=== PATIENT | male | born 1995 | race Caucasian/White ===

== ENCOUNTER 2017-09-16 22:20 | Emergency (ER) | payer BC ==
--- NOTE | 2017-09-16 22:37 | Emergency Department Record ---
History of Present Illness - General Chief Complaint: Abdominal Pain Stated Complaint: RECTAL BLEEDING Time Seen by Provider: 09/16/17 22:33 Source: Patient Mode of Arrival: Ambulatory Limitations: No limitations - History of Present Illness Initial Comments: 22 yo male presents to ED for evaluation of BRBPR that occurred this evening. Patient denies rectal pain, does report mild diffuse abdominal pain without loose stools or vomiting symptoms. Patient denies recent illness, denies use of anticoagulation medications, and denies history of inflammatory bowel disease symptoms. Patient denies constipation symptoms. Patient reports similar symptoms previous related to "gastritis". MD Complaint: Abdominal pain Onset/Timin -: Days(s) Location: Diffuse Radiation: None Migration to: No migration Severity: Mild Quality: Cramping Consistency: Intermittent Improves With: Nothing Worsens With: Nothing Associated Symptoms: Hematochezia - Related Data Previous Rx's Medication Instructions Recorded Hydrocortisone [Anusol-Hc] 1 apply RC TID #1 tube 09/16/17 Polyethylene Glycol 3350 [Miralax] 1 packet PO DAILY #20 packet 09/16/17 Allergies Allergy/AdvReac Type Severity Reaction Status Date / Time No Known Drug Allergies Allergy Verified 09/16/17 22:27 Review of Systems Constitutional: Denies: Chills, Fever, Malaise, Night sweats Eyes: Denies: Eye discharge, Eye pain ENT: Denies: Congestion, Ear pain, Epistaxis Respiratory: Denies: Cough, Dyspnea Cardiovascular: Denies: Chest pain, Dyspnea on exertion Endocrine: Denies: Fatigue, Heat or cold intolerance Gastrointestinal: Reports: Abdominal pain, Hematochezia. Denies: Constipation, Diarrhea, Vomiting Genitourinary: Denies: Incontinence, Retention Musculoskeletal: Denies: Arthralgia, Back pain, Gout, Joint swelling Skin: Denies: Bruising, Change in color Neurological: Denies: Abnormal gait, Confusion, Headache, Seizure Psychiatric: Denies: Anxiety Hematological/Lymphatic: Denies: Anemia, Blood Clots Physical Exam - General General Appearance: Alert, Oriented x3, Cooperative, No acute distress Limitations: No limitations - Head Head exam: Atraumatic, Normocephalic, Normal inspection Head exam detail: negative: Abrasion, Contusion, Sebastian's sign, General tenderness, Hematoma, Laceration - Eye Eye exam: Normal appearance. negative: Conjunctival injection, Periorbital swelling, Periorbital tenderness, Scleral icterus - ENT Ear exam: negative: Auricular hematoma, Auricular trauma Nasal Exam: negative: Active bleeding, Discharge, Dried blood, Foreign body Mouth exam: negative: Drooling, Laceration, Muffled voice, Tongue elevation - Neck Neck exam: Normal inspection. negative: Meningismus, Tenderness - Respiratory Respiratory exam: Normal lung sounds bilaterally. negative: Rales, Respiratory distress, Rhonchi, Stridor - Cardiovascular Cardiovascular Exam: Regular rate, Normal rhythm, Normal heart sounds - GI/Abdominal GI/Abdominal exam: Soft. negative: Rebound, Rigid, Tenderness - Rectal Rectal exam: Normal rectal tone, Other (Trace positive hemoccult stool, small area of induration/bleeding the outer rectal region c/w fissure.). negative: Hemorrhoids - exam: Deferred - Extremities Extremities exam: Normal inspection. negative: Pedal edema, Tenderness - Back Back exam: Denies: CVA tenderness (R), CVA tenderness (L) - Neurological Neurological exam: Alert, Normal gait, Oriented X3 - Psychiatric Psychiatric exam: Normal affect, Normal mood - Skin Skin exam: Normal color. negative: Abrasion Type of lesion: negative: abrasion Course - Reevaluation(s) Reevaluation #1: 09/16/17 23:17 Labs reviewed and are grossly unremarkable for an acute process. Clinical examination appears c/w anal fissure, given the patient's normal laboratory results, concomitant crohn's or UC of new diagnosis appears unlikely. Will prescribe hydrocortisone rectal cream and instruct the patient to use stool softeners to decrease straining and facilitate healing. Patient agrees with the plan as discussed. Medical Decision Making - Lab Data Result diagrams: 09/16/17 22:40 09/16/17 22:40 Disposition Disposition: Discharge Clinical Impression: Anal fissure Disposition: Home, Self-Care Condition: (2) Stable Instructions: Anal Fissure (ED) Additional Instructions: Return to ED if your symptoms worsen or if you have any concerns. Hydrocortisone and Miralax as directed. Sitz baths 3-4 times daily. Follow-up with your family doctor in 3-5 days as directed. Prescriptions: Hydrocortisone [Anusol-Hc] 1 apply RC TID #1 tube Polyethylene Glycol 3350 [Miralax] 1 packet PO DAILY #20 packet Forms: Patient Portal Access Time of Disposition: 23:24 Quality - Quality Measures Quality Measures: N/A - Blood Pressure Screening Does Patient Have Any of the Following: No Blood Pressure Classification: Pre-Hypertensive BP Reading Systolic Measurement: 138 Diastolic Measurement: 77 Screening for High Blood Pressure: < Pre-Hypertensive BP, F/U Documented > [ [id number]] Pre-Hypertensive Follow-up Interventions: Referral to alternative/primary care provider.
[2017-09-16 22:48] LABS: BASO % 0.4 % (0-6); EOS % 3.4 % (0-6); GRAN % 59.5 % (47-80); HEMOGLOBIN 15.3 gm/dl (14.0-18.0); LYMPH % 29.5 % (16-45); MEAN CELL VOLUME 83.6 fl (81-97); MEAN CORPUSCULAR HEMOGLOBIN 27.8 pg (27-33); MEAN CORPUSCULAR HGB CONC 33.3 g/dl (32-36); MEAN PLATELET VOLUME 10.8 fl (7.4-10.4); MONO % 7.2 % (0-9); PLATELET COUNT 269 K/uL (130-400); RED CELL DISTRIBUTION WIDTH 13.8 % (11.5-14.5)
[2017-09-16 23:01] LABS: BLOOD UREA NITROGEN 16 mg/dL (6-20); CREATININE 0.8 mg/dL (0.7-1.2); EST GLOMERULAR FILTRATION RATE > 60 mL/min
[2017-09-16 23:02] LABS: TOTAL PROTEIN 7.3 g/dL (6.6-8.7)
[2017-09-16 23:04] LABS: GLUCOSE,RANDOM 101 mg/dL (74-109)
[2017-09-16 23:06] LABS: ALB/GLOB RATIO 2.2 (1.1-1.8); ALT/SGPT 28 U/L (<41); AST/SGOT 21 U/L (10.0-50.0)
[2017-09-16 23:07] LABS: ALKALINE PHOSPHATASE 75 U/L (40-129); C-REACTIVE PROTEIN 0.19 mg/dL (<0.5)
== END 2017-09-16 23:39 | disposition home or self-care (01) ==
LOC: ER 22:20
DX: K60.2 Anal fissure, unspecified (principal); K92.1 Melena; F17.220 Nicotine dependence, chewing tobacco, uncomplicated
CPT/HCPCS: 80053; 85025; 85651; 86140; 99283